=== PATIENT | female | born 1970 | race African-American/Black ===

== ENCOUNTER 2020-12-28 18:51 | Emergency (ER) | payer MEDICAID ==
[~2020-12-28] VITALS: Ht 154.9 cm; Wt 52.0 kg
[~2020-12-28 18:51] MED LIST: [UNRECOGNIZED DRUG - REMARK]
[2020-12-28 19:00] VITALS: BP 165/85
[2020-12-28] MEDS ORDERED: LIDOCAINE HCL/PF 1% 10 MG/ML 5ML VIAL INFIL ONE (20:30)
[2020-12-28] MEDS ORDERED: BACITRACIN/POLYMYXIN B SULFATE OINT 15GM TOP ONE (20:45)
== END 2020-12-28 22:19 | disposition home or self-care (01) ==
LOC: ER 18:51
DX: S63.255A Unspecified dislocation of left ring finger, initial encounter (principal); X58.XXXA Exposure to other specified factors, initial encounter; Y93.89 Activity, other specified; Y92.89 Other specified places as the place of occurrence of the external cause; Y99.8 Other external cause status
CPT/HCPCS: 26770; 73140; 99284; J3490

== ENCOUNTER 2021-01-07 02:09 | Emergency (ER) | payer MEDICAID ==
[~2021-01-07] VITALS: Ht 154.9 cm; Wt 44.0 kg
[2021-01-07 02:57] VITALS: BP 122/79
[2021-01-07] MEDS ORDERED: ACETAMINOPHEN 325MG TABLET PO ONE (03:00)
[2021-01-07] MEDS ORDERED: TRAMADOL 50MG TABLET PO ONE (03:00)
[2021-01-07] MEDS ORDERED: LIDOCAINE HCL/PF 1% 10 MG/ML 5ML VIAL INFIL ONE (03:45)
== END 2021-01-07 05:06 | disposition home or self-care (01) ==
LOC: ER 02:09
DX: S63.285A Dislocation of proximal interphalangeal joint of left ring finger, initial encounter (principal); X58.XXXA Exposure to other specified factors, initial encounter; Y93.89 Activity, other specified; Y92.89 Other specified places as the place of occurrence of the external cause
CPT/HCPCS: 26770; 73130; 99284; J3490

== ENCOUNTER 2021-03-10 13:38 | Emergency (ER) | payer MEDICAID ==
[~2021-03-10] VITALS: Ht 154.9 cm; Wt 45.0 kg
[2021-03-10] MEDS ORDERED: NAPR-681 PO (15:50)
[2021-03-10 16:31] VITALS: BP 127/85
== END 2021-03-10 16:33 | disposition home or self-care (01) ==
LOC: ER 13:38
DX: M20.022 Boutonniere deformity of left finger(s) (principal)
CPT/HCPCS: 73140; 99283